=== PATIENT | female | born 1965 | race Caucasian/White ===

== ENCOUNTER 2022-12-05 02:54 | Emergency (ER) | payer OTHER ==
[2022-12-05 02:59] VITALS: BMI 32.1
[2022-12-05] MEDS ORDERED: IBUPROFEN 600 MG TABLET (FP) PO ONE ×2 (03:40→03:52)
[2022-12-05 03:56] VITALS: BP 164/98; PULSE 62; RESP 16; TEMP 98
[2022-12-05] MEDS ORDERED: OFLOXACIN 0.3% OTIC SOLUTION 5 ML BOTTLE AS SCH ×2 (03:57→10:00)
== END 2022-12-05 04:36 | disposition home or self-care (01) ==
LOC: JER 02:54
DX: H92.02 Otalgia, left ear (principal); R09.81 Nasal congestion; J02.9 Acute pharyngitis, unspecified
CPT/HCPCS: 99283-25